=== PATIENT | male | born 1960 | race Caucasian/White ===

== ENCOUNTER 2019-03-24 12:01 | Emergency (ER) | payer OTHER, MEDICAID ==
[~2019-03-24] VITALS: Ht 170.2 cm; Wt 101.1 kg
[~2019-03-24 12:01] MED LIST: ALPR0.5T6 PO; CARI350T PO; CELE200C PO; CETI10TA19 PO; CITA20TA8 PO; HYDR-3720 PO; LISI-329 PO; MEVA40 PO; MILN50TA; MILN50TA PO; PANT40TA4 PO
[2019-03-24 12:39] VITALS: BP 164/88; PULSE 86; RESP 18; Ht 170.2 cm; Wt 101.1 kg
[2019-03-24] MEDS ORDERED: LORA1TAB PO (12:54)
[2019-03-24] MEDS ORDERED: NALO4SPR NS (12:54)
--- NOTE | 2019-03-24 13:00 | ERD ---
ER Documentation Chief Complaint Chief Complaint anxiety, out of antianxiety meds. HPI 59-year-old male presents the emergency department complaining of anxiety. A long-standing history of anxiety as well as chronic pain. He is on multiple medications. He has had recent follow-up at the outpatient psychiatric urgent care and has been referred to psychiatric treatment within the next week. However, patient states he ran out of his anxiety medication. He reports difficulty sleeping with severe anxiety symptoms. He denies suicidal or homicidal thoughts. He denies auditory or visual hallucinations. ROS All systems reviewed and are negative except as per history of present illness. Medications Home Meds Active Scripts Naloxone HCl nasal spray (Narcan 4 mg/0.1 mL nasal) 4 Mg [place], 4 MG NS .Q2-3MIN for OPIOID OVERDOSE, #2 SPRAY 0 Refills [place] 0.1 mL into one nostril. Repeat with second device into other nostril after 2-3 minutes if no or minimal response Prov:DARRION SMITH 03/24/19 Lorazepam* (Lorazepam*) 1 Mg Tablet, 1 MG PO Q8, #30 TAB Prov:DARRION SMITH 03/24/19 Reported Medications Milnacipran Hcl (Savella) 50 Mg Tablet, 50 MG PO BID, TAB 09/06/14 Celecoxib* (Celebrex*) 200 Mg Capsule, 200 MG PO DAILY, CAP 09/06/14 Cetirizine Hcl* (Cetirizine Hcl*) 10 Mg Tablet, 10 MG PO DAILY, TAB 09/06/14 Pantoprazole* (Pantoprazole*) 40 Mg Tablet.dr, 40 MG PO DAILY, TAB 05/24/14 Lisinopril-Hydrochlorothiazide (Lisinopril-HCTZ) 20-25 Mg Tab, 1 TAB PO DAILY, TAB 05/24/14 Carisoprodol* (Soma*) 350 Mg Tablet, 350 MG PO DAILY, TAB 05/20/14 Hydrocodone Bit-Acetaminophen* (Lequire*) 7.5-325 Tablet, 1 TAB PO BID PRN for PAIN, TAB 05/20/14 Alprazolam* (Alprazolam*) 0.5 Mg Tablet, 0.5 MG PO BID, TAB 05/20/14 Lovastatin (Lovastatin) 40 Mg Tablet, 40 MG PO HS, TAB 8/29/14 Citalopram Hydrobromide* (Citalopram Hydrobromide*) 20 Mg Tablet, 20 MG PO DAILY, TAB 05/20/14 Milnacipran Hcl (Savella) 50 Mg Tablet 02/28/11 Allergies Allergies: Coded Allergies: No Known Allergies (Verified Allergy, Mild, 05/24/14) PMhx/Soc History of Surgery: Yes (l knee, bilateral shoulder, r foot, back) Anesthesia Reaction: No Hx Neurological Disorder: No Hx Respiratory Disorders: No Hx Cardiac Disorders: Yes (htn, high cholesterol) Hx Psychiatric Problems: Yes (anxiety) Hx Miscellaneous Medical Probl: No Hx Alcohol Use: No Hx Substance Use: No Hx Tobacco Use: No Physical Exam Vitals Vital Signs Date Temp Pulse Resp B/P (MAP) Pulse Ox O2 O2 Flow FiO2 Time Delivery Rate 03/24/19 97.8 86 18 164/88 99 12:39 (113) Physical Exam General: well developed, well nourished, in no distress. Neuro: Normal speech, gait, balance Psych: Patient is awake, alert, oriented. He has a normal thought process. He has an anxious affect and demeanor. He denies suicidal or homicidal thoughts. Procedures/MDM Patient was taken to a room, seen and examined Medical decision makin-year-old male with a chronic history of anxiety as well as multiple prescriptions for benzodiazepines and narcotics presents with anxiety symptoms. At this time he appears to be significantly anxious with an ongoing anxiety disorder as well as likely dependence on the prescription drugs. Patient has no indications of significant DTs or other high-risk concerns and will be appropriate for outpatient management. Patient has been prescribed the benzodiazepines for his symptoms as well as Narcan given the multiple substances that he is on. Departure Diagnosis: Primary Impression: Anxiety Condition: Stable Patient Instructions: Anxiety Reaction Additional Instructions: Do not mix or change the medications. See the psychiatrist as scheduled. DARRION SMITH Mar 24, 2019 13:00
== END 2019-03-24 13:35 | disposition home or self-care (01) ==
LOC: FTE 12:01
DX: F41.9 Anxiety disorder, unspecified (principal); I10 Essential (primary) hypertension; Z76.0 Encounter for issue of repeat prescription
CPT/HCPCS: 99281